=== PATIENT | male | born 1990 | race Caucasian/White ===

== ENCOUNTER 2019-03-16 20:06 | Emergency (ER) | payer MEDICAID ==
[~2019-03-16] VITALS: Ht 185.4 cm; Wt 68.0 kg
[2019-03-16 20:17] VITALS: BP_SYST 114
[2019-03-16 22:49] VITALS: BP_SYST 123
== END 2019-03-16 22:50 | disposition home or self-care (01) ==
LOC: SED 20:06
DX: S42.002A Fracture of unspecified part of left clavicle, initial encounter for closed fracture (principal); S93.401A Sprain of unspecified ligament of right ankle, initial encounter; S00.31XA Abrasion of nose, initial encounter; S09.93XA Unspecified injury of face, initial encounter; V27.4XXA Motorcycle driver injured in collision with fixed or stationary object in traffic accident, initial encounter; Y93.89 Activity, other specified; Y92.410 Unspecified street and highway as the place of occurrence of the external cause; Y99.8 Other external cause status
CPT/HCPCS: 71100; 73000-TC; 99283

== ENCOUNTER 2019-03-22 14:53 | Emergency (ER) | payer MEDICAID ==
[~2019-03-22] VITALS: Ht 185.4 cm; Wt 68.0 kg
[2019-03-22 15:04] VITALS: BP_SYST 131
[2019-03-22 16:39] VITALS: BP_SYST 131
== END 2019-03-22 16:39 | disposition home or self-care (01) ==
LOC: SED 14:53
DX: S93.401A Sprain of unspecified ligament of right ankle, initial encounter (principal); R03.0 Elevated blood-pressure reading, without diagnosis of hypertension; V27.4XXA Motorcycle driver injured in collision with fixed or stationary object in traffic accident, initial encounter; Y93.89 Activity, other specified; Y92.410 Unspecified street and highway as the place of occurrence of the external cause; Y99.8 Other external cause status
CPT/HCPCS: 99283

== ENCOUNTER 2022-03-22 12:24 | Emergency (ER) | payer MEDICAID ==
[~2022-03-22] VITALS: Ht 185.4 cm; Wt 72.6 kg
--- NOTE | 2022-03-22 12:30 | NUR ---
Pt brought by self, A&Ox4, pt presents to ER with bilateral flank pain/ bodyaches and blood in the sputum, pt states he had cought for 4 months, Hx of asthma, skin pink and warm, cap refill <3, VSS, respirations even and unlabored, will con to monitor.
[2022-03-22 12:36] VITALS: BP_SYST 152
--- NOTE | 2022-03-22 12:50 | NUR ---
Dr Talbot evaluating patient in the tent
--- NOTE | 2022-03-22 13:24 | NUR ---
COVID AND FLU SWAB SENT TO LAB
[2022-03-22 13:30] LABS: BILIRUBIN,URINE NEGATIVE (NEGATIVE); BLOOD, URINE NEGATIVE (NEGATIVE); CLARITY/URINE CLEAR (CLEAR); COLOR,URINE YELLOW (YELLOW); GLUCOSE,URINE NEGATIVE (NEGATIVE); KETONES,URINE NEGATIVE (NEGATIVE); LEUKOCYTE ESTERASE ,URINE NEGATIVE (NEGATIVE); NITRITE, URINE NEGATIVE (NEGATIVE); PH,URINE 5.5 (5.0-8.0); PROTEIN URINE NEGATIVE (NEGATIVE); UROBILINOGEN,URINE 0.2 (0.2-1.0)
--- NOTE | 2022-03-22 14:10 | NUR ---
Pt moved to bed 04
--- NOTE | 2022-03-22 14:20 | NUR ---
[facility] in [facility] - 03/22/22 at 1504 by [email or web address] Report given to Edson COSTA
[2022-03-22] MEDS ORDERED: KETOROLAC TROMETHAMINE 30 MG VIAL IM ONE (14:30)
[2022-03-22] MEDS ORDERED: IBUP-1971 PO (14:58)
[2022-03-22 15:04] VITALS: BP_SYST 152
--- NOTE | 2022-03-22 15:04 | NUR ---
Patient given written and verbal discharge instructions and verbalizes understanding. ER MD discussed with patient the results and treatment provided. Patient in stable condition. ID arm band removed. Rx of Ibuprofen given. Patient educated on pain management and to follow up with PMD. Pain Scale 0/10 . Opportunity for questions provided and answered. Medication side effect fact sheet provided.
== END 2022-03-22 15:04 | disposition home or self-care (01) ==
LOC: SED 12:24
DX: J40 Bronchitis, not specified as acute or chronic (principal); R05.9 Cough, unspecified; R07.9 Chest pain, unspecified; J44.9 Chronic obstructive pulmonary disease, unspecified; F17.200 Nicotine dependence, unspecified, uncomplicated; Z71.6 Tobacco abuse counseling; Z20.822 Contact with and (suspected) exposure to COVID-19
CPT/HCPCS: 99285; 71045; 87426; 36415; 93005; 96372; 81003; 87804 ×2; J1885

== ENCOUNTER 2022-04-06 21:28 | Emergency (ER) | payer MEDICAID ==
[~2022-04-06] VITALS: Ht 185.4 cm; Wt 73.0 kg
[~2022-04-06 21:28] MED LIST: IBUP-1971 PO
[2022-04-06 21:58] VITALS: BP_SYST 134
--- NOTE | 2022-04-06 22:00 | NUR ---
Pt brought by self, A&Ox4, pt presents to ER with possible overdose, states he had covid 3 weeks ago and has been taking tylenol 500 mg aprox 5 times a day, maybe 4000 to 7000 mg in the last 28 hours but he is not sure ,pt states he has been forgetful , also states he may took alleve but restates he is not sure, pt denies suicidal or homicidal thoughts, VSS, no N/A noted, Dr Carrasco notified, will cont to monitor.
--- NOTE | 2022-04-06 22:04 | NUR ---
Called Poison Control at [phone] and spoke with Dae . Per recommendations monitor liver function, Acetaminophen levels ,renal function levels, (CMP), : . Dr Heath notified. Will continue to monitor patient.
--- NOTE | 2022-04-06 22:30 | NUR ---
Dr Carrasco evaluating patient in the tent.
--- NOTE | 2022-04-06 22:35 | NUR ---
Report given to Destini LAURENT
--- NOTE | 2022-04-06 22:35 | NUR ---
[facility] in [facility] - 04/06/22 at 2307 by [email or web address] Report given to Destini RIVERA
[2022-04-06] MEDS ORDERED: NACL 0.9% 1,000 ML IV ONE (23:15)
[2022-04-07 00:14] LABS: BASOPHILS # (AUTO) 0.1 K/uL (0.0-0.2); BASOPHILS % (AUTO) 2.7 % (0.0-2.0); EOSINOPHILS # (AUTO) 0.1 K/uL (0.0-0.4); EOSINOPHILS % (AUTO) 2.3 % (0.0-4.0); HEMATOCRIT 44.5 % (36-54); HEMOGLOBIN 15.3 g/dL (14.0-18.0); LYMPHOCYTES % (AUTO) 20.3 % (20.5-51.5); MEAN CORPUSCULAR HEMOGLOBIN 29 pg (27-31); MEAN CORPUSCULAR HGB CONC 34 % (32-36); MEAN CORPUSCULAR VOLUME 84 fL (79.0-98.0); MONOCYTES # (AUTO) 0.4 K/uL (0.0-1.0); NEUTROPHILS # (AUTO) 3.4 K/uL (1.8-7.7); NEUTROPHILS % (AUTO) 66.7 % (40.0-70.0); PLATELET COUNT (AUTO) 190 K/uL (130-430); WHITE BLOOD COUNT (AUTO) 5.1 K/uL (4.8-10.8)
[2022-04-07 00:32] LABS: PROTHROMBIN TIME 9.8 SECS (9.5-12.5)
[2022-04-07 00:44] LABS: ANION GAP 9 (5-15); CALCIUM 8.9 mg/dL (8.4-11.0); CHLORIDE 102 mmol/L (98-107); GLUCOSE 102 mg/dL (70-99); SODIUM SERUM 140 mmol/L (136-145); UREA NITROGEN, BLOOD 11 mg/dL (8-21)
[2022-04-07 00:50] LABS: GFR AFRICAN AMERICAN 100 mL/min (>90)
[2022-04-07 00:57] LABS: ACETAMINOPHEN 2 ug/mL (1-30); ALANINE AMINOTRANSFERASE 36 U/L (12-78); ALBUMIN 4.3 g/dL (3.4-4.8); ASPARTATE AMINOTRANSFERASE 33 U/L (10-37); TOTAL BILIRUBIN 1.1 mg/dL (0.0-1.0)
[2022-04-07 01:03] LABS: ALCOHOL, BLOOD < 3 mg/dL (<10)
--- NOTE | 2022-04-07 01:24 | NUR ---
SPOKE TO ALEX FROM POISON CONTROL OK TO DISCHARGE PATIENT
--- NOTE | 2022-04-07 01:55 | NUR ---
[facility] in [facility] - 04/07/22 at 0221 by [email or web address] COVID AND INFLUENZA SWABS SENT TO LAB BILATERAL SWABBING OF NARED
--- NOTE | 2022-04-07 02:00 | NUR ---
[facility] in [facility] - 04/07/22 at 0221 by [email or web address] MARYBETH DONE AT BEDSIDE
== END 2022-04-07 02:38 | disposition home or self-care (01) ==
LOC: SED 21:28
DX: T39.1X1A Poisoning by 4-Aminophenol derivatives, accidental (unintentional), initial encounter (principal); J44.9 Chronic obstructive pulmonary disease, unspecified; Z79.899 Other long term (current) drug therapy; Y92.89 Other specified places as the place of occurrence of the external cause
CPT/HCPCS: 99283; 80053; 85025; 85610; 85730; 36415; 82803; 83605; 36600; G0482; G0480; G0481